=== PATIENT | female | born 1990 ===

== ENCOUNTER 2022-08-11 09:46 | Outpatient (CLI) | payer OTHER, SELFPAY | END 2022-08-11 09:47 | disposition home or self-care (01) | PROVIDERS: Visit Provider Advanced Practice Midwife | DX: Z34.92 Encounter for supervision of normal pregnancy, unspecified, second trimester (principal); Z3A.23 23 weeks gestation of pregnancy; B37.9 Candidiasis, unspecified | CPT/HCPCS: 87086 ==

== ENCOUNTER 2022-09-03 12:38 | Outpatient (CLI) | payer OTHER, SELFPAY ==
--- NOTE | 2022-09-03 13:00 | CRLHL7_ITS ---
For Patients: As a result of the Century Cures Act, medical imaging exams and procedure reports are released immediately into your electronic medical record. You may view this report before your referring provider. If you have questions, please contact your health care provider. INDICATION: Evaluate anatomy. COMPARISON: None. TECHNIQUE: Real time encarnacion scale imaging of the fetus was performed. FINDINGS: Sonographic imaging demonstrates a single living intrauterine gestation. Fetus demonstrates a regular cardiac rate of 142 beats per minute. Fetus has a variable orientation. The placenta lies posteriorly without evidence of placenta previa. Amniotic fluid volume appears normal. Single deepest vertical pocket: 6.1 cm. The cervix is closed and measures 4.1 cm in length. The composite ultrasound gestational age is calculated at 25 weeks 5 days with an estimated sonographic due date of December 12, 2022. The estimated weight is 872 grams which lies at the 36th percentile. The following biometric measurements were obtained: Biparietal diameter: 6.5 cm/26 weeks 1 day 43% Head circumference: 23.9 cm/26 weeks 0 days 24% Abdominal circumference: 21.9 cm/26 weeks 3 days 53% Femur length: 4.6 cm/25 weeks 2 days 18% The HC/AC ratio measures: 1.09 range (1.04-1.22) On anatomic survey, there is a normal appearance of the cerebral ventricles, cisterna magna and cerebellum. The nose, lips, and facial profile appear normal. The cervical, thoracic and lumbar spine are well visualized and appear normal. There is a normal four-chamber heart view and the left and right ventricular outflow tracts appear normal. diaphragm, stomach, kidneys and bladder appear normal. There is a normal three-vessel cord and cord insertion site. The four extremities appear normal. IMPRESSION: Normal OB ultrasound exam with concordance of clinical and sonographic dating. No intrinsic abnormalities noted on anatomic survey. Dictated by Jacob Taylor MD @ 09/04/2022 8:58:39 AM (Electronically Signed)
== END 2022-09-03 12:39 | disposition home or self-care (01) ==
PROVIDERS: Visit Provider Advanced Practice Midwife
DX: Z34.92 Encounter for supervision of normal pregnancy, unspecified, second trimester (principal); Z3A.26 26 weeks gestation of pregnancy
CPT/HCPCS: 76805

== ENCOUNTER 2022-09-03 14:18 | Outpatient (CLI) | payer OTHER, SELFPAY | END 2022-09-03 14:19 | disposition home or self-care (01) | LOC: NFLDREF 09-07 15:37 | PROVIDERS: Visit Provider Advanced Practice Midwife | DX: Z34.92 Encounter for supervision of normal pregnancy, unspecified, second trimester (principal); Z3A.26 26 weeks gestation of pregnancy | CPT/HCPCS: 80306; 86592; 86703; 86762; 86787; 86803; 86850; 86900; 86901; 87086; 87340 ==

== ENCOUNTER 2022-11-10 09:38 | Outpatient (CLI) | payer OTHER, SELFPAY ==
[2022-11-11 14:49] LABS: Strep B DNA Probe Negative (Negative)
[2022-11-11 14:50] LABS: Strep B Pen/Amox Allergy No
== END 2022-11-10 09:39 | disposition home or self-care (01) ==
PROVIDERS: Visit Provider Advanced Practice Midwife
DX: Z34.93 Encounter for supervision of normal pregnancy, unspecified, third trimester (principal); Z3A.35 35 weeks gestation of pregnancy
CPT/HCPCS: 87081; 87653

== ENCOUNTER 2022-12-14 04:00 | Inpatient (IN) | payer OTHER, SELFPAY ==
[2022-12-14] VITALS (23 sets, daily range): BP systolic 113–146; BP diastolic 59–80; PULSE 74–118; RESP 16–18; TEMP 36.4–37.2; O2SAT 98–100; BMI 25.0
[2022-12-14 04:35] LABS: SARS Antigen* positive (Negative)
--- NOTE | 2022-12-14 05:16 | P.LDBA_ITS ---
Subjective History of Present Illness Date Seen: 12/14/22 Narrative: Park is a 32 yo at 40 4/7 weeks gestation being admitted to Labor and Delivery for spontaneous onset of labor. She reports her contractions began about 930 pm last night. The were about every 20-30 minutes initially before suddently becoming more regular early this morning. She has not slept much overnight. She denies any leaking of fluid or bleeding. She endorses + FM. She is supported in labor by her partner, Christopher, and her mom, Gisel. Her full history and physical was dictated by Rodolfo De Jesus CNM on 11/17/2022. Please see this for details. OB PROBLEM LIST 1. Closely spaced pregnancies. Last delivery 09/14/21 2. Late to [facility] at 14.5 weeks. -UDS negative 3. + for herpes at NOB per pt report. Denies ever having any lesions. Valtrex at 36 weeks: Rx sent 10/27 4. Hx Chlamydia 06/2021. Negative since. 5. Hx of IOL for questionable PreE with last . Had HAs, RUQ pain and blurred vision but not elevated BPs. Unsure about labs. P/C ratio 6 days before delivery normal. Records are not great but there is not documentation of elevated BP or Pre-E Started ASA at 22 weeks after transfer 6. Penicillin allergy. Rash as a child. Sensitivities if GBS+. 7. +HPV on pap 02/25/21 and 06/23/2022. Pap was NILM w/ both Needs colposcopy -agreeable to 8. Anxiety. Well controlled at this time. 9. Hx asthma. Has not used inhaler in many years. Rx for albuterol sent 10/27 due to increased SOB/cough 10. Anemia, Hgb 10.8 Recommended iron supplement q M/W/F 11. Skin tag on L buttocks, desires removal after if able 12. COVID +, 8 COVID: initial series 32wk Mental Health: 10/13/2022. OB Labs:??? Blood type: A+, antibody screen negative.? Pap (06/23/22): NIL, HPV+, also HPV+ 02/2021 Genetic screening: declines ?? IMAGING:??? 1st trimester: 2/8/23 Anteverted uterus with viable IUP at 14.5 weeks. LMP unsure. FHR noted and placenta seen posterior grade 0. No subchorionic hemorrhage seen.? Anatomy scan: records not received but performed in [place] per pt report. No scan was done in [place]. Scan completed here on 09/03/22.? OB - Problem Based A/P Additional Plan (1) Pain during labor: Status: Acute (2) COVID-19 affecting childbirth: Status: Acute (3) 40 weeks gestation of : Status: Acute (4) Asthma: Problem details: Symptoms worsening with , has inhaler for PRN. exercise induced. hasn't used medications in many years. Status: Acute (5) History of herpes genitalis: Problem details: On Valtrex for suppression Status: Acute (6) Hx of pre-eclampsia in prior , currently : Status: Acute (7) Anxiety: Status: Acute (8) Short interval between pregnancies complicating , antepartum: Status: Acute Plan ASSESSMENT:? 32 yo at 40.4 weeks gestation? complicated by:? 1. Closely spaced pregnancies. Last delivery 09/14/21 2. Late to [facility] at 14.5 weeks. -UDS negative 3. + for herpes at NOB per pt report. Denies ever having any lesions. Valtrex at 36 weeks: Rx sent 10/27 4. Hx of IOL for questionable PreE with last . Had HAs, RUQ pain and blurred vision but not elevated BPs. Unsure about labs. P/C ratio 6 days before delivery normal. Records are not great but there is not documentation of elevated BP or Pre-E Started ASA at 22 weeks after transfer 5. Anxiety 6. Hx asthma 7. Anemia, Hgb 10.8 8. COVID +, 8/5 Labor type: Spontaneous, Active labor? Category 1 FHR pattern.?? Labor complicated by: COVID +? GBS negative? ? PLAN:? 1. Routine intrapartum cares as ordered. Continue with expectant management? 2. Monitoring per policy, intermittent? 3. Planning unmedicated . Desires water . Consent signed. Hep C negative. Candidate for analgesia of choice.?? 4. Patient encouraged to reposition and ambulate to promote physiologic labor and .? 5. COVID precautions in place per policy with COVID + status 6. Anticipate ? Delivery/Labor/Induction Plan Plan: expectant management OB Exam Physical Exam Vital signs: Temp Pulse BP 98.3 F 96 123/62 12/14/22 04:36 12/14/22 04:21 12/14/22 04:21 Narrative: Vitals Reviewed Constitutional:? Alert and oriented x3 HEENT:? Normocephalic, atraumatic Neck:? Supple Lungs:? Clear to auscultation bilaterally Heart:? Regular rate and rhythm, no murmur, rub or gallop Abdomen:? Soft, nontender, and gravid. Vertex by Ben's, confirmed with cervical exam. Extremities:? No edema or erythema Cervix: 6-7 cm/vertex, per RN NST: 140 bpm/moderate variability/15x15 accelerations/no decelerations/contractions every 2-5 minutes Detailed Labor and Delivery Exam Patient Gravid: Yes
[2022-12-14] MEDS: OXYTOCIN 10 UNIT/ML INJ IM (06:40)
[2022-12-14] MEDS: LIDOCAINE 1 % PF 30 ML INJECTION (06:45)
--- NOTE | 2022-12-14 07:47 | W.PM.OBVAGDE ---
OB Procedure Vag Delivery Mother Details Mother Details: Park is a 32 year-old, 2, now Para 2, admitted on 12/14/22 at 40 4/7 weeks gestation. : 2 Para: 2 Weeks Gestation: 40.4 Admission Date: 12/14/22 Additional Details Amniotic Membrane Status: AROM Amniotic Membrane Rupture Date: 12/14/22 Amniotic Membrane Rupture Time: 06:22 Amniotic Membrane Fluid Description: Clear Analgesia/Anesthesia Type: Local (For skin tag removal on buttock) Waterbirth: Yes Pitcoin: Yes ([facility] only) Intrapartal Events: None Labor Onset: 21:30 Complete: 06:22 Pushin:15 Heart: heart tones during second stage were reassuring with intermittent auscultation. Delivery Details Delivery Date: 12/14/22 Delivery Time: :31 Route of delivery: Infant Gender: Male Infant Viability: Alive; Heart Rate Present Position at Delivery: OA Delivery Details: Patient was admitted for spontaneous onset of labor and progressed normally. AROM noted at 0622 with clear fluid. Patient was complete at 0622 and pushing at 0615 with peak of contraction only until AROM, then pushing with urge consistently. of a viable male at 0631 in kneeling position in the tub. Vertex delivered OA. No nuchal cord or shoulder. Body delivered easily and without incident. Mother was rotated to her back and infant passed to mothers abdomen with a vigorous cry. Cord was clamped and cut at > 5 minutes. APGARS were 8 at one minute and 9 at five minutes respectively. Mouth was bulb suctioned. Mother was assisted from the tub to the bed. Intact placenta with a 3 vessel cord delivered spontaneously at 0646. Fundus firm. Intact perineum. Per patient request, 1mL of lidocaine injected at site of skin tag on left inner buttock, grasped with forceps, then removed with scalpel and sent for pathology. Pressure held for hemostasis, no sutures needed.. QBL 50 cc. Mother and baby stable; mother plans to breastfeed. Infant weight pending. 1 Minute Interval Total Score: 8 5 Minute Interval Total Score: 9 Additional Details Shoulder Dystocia: No Placenta Delivery Time: 06:46 Placental Delivery Description: Spontaneous Procedure Done: Global Blood Loss: 50 Laceration: None Blood Loss Measurement Type: QBL Bakri Used: No Sponge/Need Count Correct: Yes Cord Vessel Description: 3 Vessels Event Summary Status: Mother and were stable after delivery. Disposition: floor
[2022-12-14] MEDS: DOCUSATE SODIUM 100 MG CAPSULE PO (09:08)
[2022-12-14] MEDS: ACETAMINOPHEN 500 MG TABLET 1000 MG PO ×2 (09:08→19:39)
[2022-12-14] MEDS: OXYTOCIN 30 unit/500 ML in NS 30 UNIT/500 ML BAG 160 UNIT IVPB (09:36)
[2022-12-14] MEDS: LACTATED RINGERS 1000 ML 1,000 ML 999 ML IV (09:36)
[2022-12-14] MEDS: miSOPROStoL 800 MCG/4 TABLET PR (09:55)
[2022-12-14] MEDS: TRANEXAMIC ACID 100 MG/ML INJ 1000 MG IV (10:09)
[2022-12-14 10:29] LABS: Basophils Absolute Auto 0.02 K/uL (0.00-0.30); Basophils Percent Auto 0.2 % (0.0-3.0); Hematocrit 27.1 % (33.0-51.0); Hemoglobin* 8.8 gm/dL (12.0-16.0); Immature Granulocytes Abs Auto 0.01 K/uL (0.00-0.30); Immature Granulocytes Pct Auto 0.1 %; Lymphocytes Percent Auto 11.4 % (20-44); Mean Corpuscular HGB Conc 33 gm/dL (32-36); Mean Corpuscular Hemoglobin 27 pg (26-34); Mean Corpuscular Volume 82 fL (80-100); Monocytes Percent Auto 4.8 % (0.0-11.0); Neutrophils Percent Auto 83.5 % (42.0-72.0); Platelet Count* 224 K/uL (140-440); RDW Coefficient of Variation % 13.9 % (11.5-15.5); White Blood Count* 10.84 K/uL (4.50-11.00)
[2022-12-14 10:30] LABS: Slide Review Reflex No
[2022-12-14] MEDS: lidocaine HCL 2 % JELLY (TOP) STERILE 6 ML UR (10:30)
[2022-12-14] MEDS: LACTATED RINGERS 1000 ML 1,000 ML 125 ML IV (10:37)
[2022-12-14 10:44] LABS: INR 0.92 (0.91-1.10); Prothrombin Time 12.9 Seconds
[2022-12-14 10:45] LABS: Fibrinogen* 385 mg/dL (200-450); Partial Thromboplastin Time* 29 Seconds (23-33)
[2022-12-14] MEDS: METHYLERGONOVINE MALEATE 0.2 MG/ML INJ IM (11:00)
[2022-12-14] MEDS: IBUPROFEN 600 MG TABLET PO (23:44)
[2022-12-15 06:08] VITALS: BP 111/67; PULSE 70; RESP 14; TEMP 36.4; O2SAT 97
[2022-12-15 09:29] LABS: Hemoglobin* 8.3 gm/dL (12.0-16.0)
[2022-12-15] MEDS: FERROUS SULFATE 325 MG TABLET PO (09:31)
[2022-12-15] MEDS: IBUPROFEN 600 MG TABLET PO ×2 (09:31→15:22)
[2022-12-15] MEDS: DOCUSATE SODIUM 100 MG CAPSULE PO (09:31)
[2022-12-15 09:47] VITALS: BP 115/79; PULSE 79; RESP 16; TEMP 36.4; O2SAT 97
[2022-12-15] MEDS: ACETAMINOPHEN 500 MG TABLET 1000 MG PO (11:51)
[2022-12-15 15:23] VITALS: BP 113/75; PULSE 83; RESP 16; TEMP 36.4; O2SAT 98
--- NOTE | 2022-12-15 16:33 | PM.OBPNVD1 ---
OB - PN:Subj Subjective Date Seen: 12/15/22 Patient comments OB post-: pain well controlled, tolerating diet and flatus present infant status: feeding status: exclusively Narrative: The patient feels better. Feels that she has more energy this afternoon than she did even this morning.?Her Hgb today is 8.3. She feels fatigued but denies feeling lightheaded or dizzy. VSS. Discussed the options of continuing PO iron vs IV iron. Declined the IV iron at this time and would like to continue with PO iron. The pain is well controlled with current medications.? She has no new complaints.? Urinary output is adequate and she is voiding without difficulty.? Has a good appetite, is tolerating a general diet, is passing flatus, and has not had a bowel movement.? Has scant amount of rubra lochia.? She is ambulating well.?She would like to stay another night to make sure she continues to feel well. OB - PN: Obj Exam Physical Exam: Vital signs: Temp Pulse Resp BP Pulse Ox O2 Del Method 97.5 F L 83 16 113/75 98 Room Air 12/15/22 15:23 12/15/22 15:23 12/15/22 15:23 12/15/22 15:23 12/15/22 15:23 12/15/22 15:23 Narrative: GENERAL APPEARANCE:? normal affect, alert, no distress? MOOD:? appropriate? CHEST:? clear to auscultation and percussion? HEART:? regular rate and rhythm? ABDOMEN:? soft, non-tender the uterine fundus is U/2 and is appropriate for the stage of recovery.? PERINEUM:? mild edema of the perineum, there is an intact perineum that is healing well.? EXTREMITIES:? normal and no edema? Urinary Catheter Management: Urethral: Cath placed during this visit: yes Urethral indwelling: No Reason for continuing: other continuation reason Insertion date: 12/14/22 Insertion time: 10:30 OB - PN: Obj Data Labs Labs: Laboratory Results - last 24 hr 12/14/22 12/15/22 17:50 09:12 Hgb 9.0 L 8.3 L OB - PN: A/P Delivery Assessment and Plan (1) COVID-19 affecting childbirth: Status: Acute (2) 40 weeks gestation of : Status: Acute (3) Lactating mother: Status: Acute (4) care following vaginal delivery: Status: Acute (5) Skin tag: Problem details: Desires removal after Status: Acute Plan day: 1 Plan: routine care Comments: Anticipate discharge home tomorrow
[2022-12-16 00:39] VITALS: BP 106/75; PULSE 86; RESP 16; TEMP 36.4; O2SAT 98
[2022-12-16 08:53] VITALS: BP 109/66; PULSE 94; RESP 16; TEMP 36.7; O2SAT 96
--- NOTE | 2022-12-16 09:02 | P.DS_ITS ---
DS: Providers Provider Time Seen by Provider: 09:02 Date Seen: 12/16/22 Date of admission: 12/14/22 04:00 Primary care physician: Not a Local Provider Admitting Clinician: Zee Abrams CNM Attending Physician on discharge: Zee Abrams CNM Date of Discharge: 12/16/22 DS: Diagnosis Discharge Diagnosis (1) care following vaginal delivery: Status: Acute (2) Lactating mother: Status: Acute (3) COVID-19 affecting childbirth: Status: Acute Exam Narrative: Exam Narrative: VSS, afebrile GENERAL APPEARANCE: ?normal affect, alert, no distress MOOD: ?appropriate HEENT: normocephalic, neck supple, full ROM CHEST: ?Symmetrical chest wall movement. ?Normal respiratory effort. ?Clear to auscultation HEART: ?regular rate and rhythm ABDOMEN: ?soft, non-tender. Uterine fundus is firm, 2 below Umbilicus, Midline and is appropriate for the stage of recovery. ?Bowel sounds present. PERINEUM: ?mild edema of the perineum, there is no laceration EXTREMITIES: ?normal and no edema Const: Vital Signs, click to edit/add: Vital Signs - 24 hr 12/15/22 09:47 12/15/22 15:23 12/16/22 00:39 Temperature 97.6 F 97.5 F L 97.5 F L Pulse Rate [Right Pulse Oximeter] 79 83 86 Respiratory Rate 16 16 16 Blood Pressure [Ri ght Arm] 115/79 113/75 106/75 Pulse Oximetry 97 98 98 Oxygen Delivery Me thod Room Air Room Air Room Air 12/16/22 08:53 Temperature 98.1 F Pulse Rate [Right Pulse Oximeter] 94 Respiratory Rate 16 Blood Pressure [Ri ght Arm] 109/66 Pulse Oximetry 96 Oxygen Delivery Me thod Room Air Documenting provider has reviewed patient's vital signs: yes OB - DS: Summary Hospital Course Hospital Course: Park is a 32 y.o. G 2 P 2 who was admitted to [facility] & [facility] for labor. ?She had an NVD, which was complicated by heavy PP bleeding after delivery. She also currently has covid. The patient feels well. ?The pain is well controlled with current medications. ?She has no new complaints. ?She is breast feeding and reports things are going well.? the patient has done well.? Vitals have been stable.? She has remained afebrile.? Has a good appetite, is tolerating a general diet. ?She is voiding without difficulty.? She is passing gas and has not had a bowel movement.? She is ambulating and denies any dizziness.? Has Small amount of rubra lochia. She is planning mini pill for prevention. Problems: covid plan: Discharge home with baby. Follow up in 2 weeks and 6 weeks. , may follow up with if needed Acute anemia, continue iron supplementation for 6 weeks Covid Peripartum Data Infant delivery method: Vaginal Laceration description: None [place] Infant Gender: Male Infant Discharge Plan: Home Status at Discharge Functional status at discharge: independent ambulation Overall status at discharge: patient is progressing back to baseline Time Spent with Patient Time attestation: Total time spent providing and/or coordinating discharge services: Time spent: Less than 30 minutes Discharge Plan Discharge Disposition: Home, Self-Care Date of Admission: 12/14/22 04:00 Attending Provider on Discharge: Marina Hendrickson Primary Care Provider: Provider,Not a Local Condition: Stable Anticipated Discharge Date/Time: 12/16/22 10:00 Discharge Medications: New docusate sodium 100 mg Capsule 100 mg PO BID PRNQty: 100 0RF Rx Instructions: Take 1 cap 1-2 times a day as needed for constipation ferrous sulfate 325 mg (65 mg iron) Tablet 325 mg PO Q OTHER DAY Qty: 25 0RF ibuprofen 600 mg Tablet 600 mg PO Q6H PRNQty: 60 0RF Continued PNV 119-iron fum-folic acid 29 mg iron- 1 mg tablet 1 tab PO DAILY albuterol sulfate 90 mcg/actuation HFA aerosol inhaler 2 puff inhalation Q6H PRN (Reason: shortness of breath or wheezing) Qty: 8.5 0RF Discontinued valacyclovir [Valtrex] 500 mg tablet 500 mg PO BID Qty: 30 2RF Discharge Orders: Discharge Order (Routine); Ordered 12/16/22 Ordered By: Marina Hendrickson Patient Education: OB Over the Counter Medication Information, OB Vaginal/Breast Feeding Additional Instructions: Follow up in 2 weeks and 6 weeks Activity Level: Activity as Tolerated Discharge Diet: Regular Follow Up Appointments: Provider,Not a Local [Primary Care Provider] - Forms: [employer] [facility] Info Instructions
[2022-12-16] MEDS: DOCUSATE SODIUM 100 MG CAPSULE PO (09:04)
[2022-12-16] MEDS: FERROUS SULFATE 325 MG TABLET PO (09:04)
== END 2022-12-16 14:00 | disposition home or self-care (01) | DRG 805 ==
LOC: OB OUT 05:09 → OB 05:09
PROVIDERS: Advanced Practice Midwife; Admitting Provider Advanced Practice Midwife; Visit Provider Advanced Practice Midwife
DX: O98.52 Other viral diseases complicating childbirth (principal); U07.1 COVID-19; Z37.0 Single live birth; O98.32 Other infections with a predominantly sexual mode of transmission complicating childbirth; D62 Acute posthemorrhagic anemia; O90.81 Anemia of the puerperium; L91.8 Other hypertrophic disorders of the skin; A60.00 Herpesviral infection of urogenital system, unspecified; J45.909 Unspecified asthma, uncomplicated; Z3A.40 40 weeks gestation of pregnancy
CPT/HCPCS: 36415; 85018; 85025; 85384; 85610; 85730; 86850; 86900; 86901; 86922; 87426; 88305; A9270; J2001; J2210; J2590; J7120